=== PATIENT | male | born 1965 | race Caucasian/White ===

== ENCOUNTER 2018-05-14 13:12 | Emergency (ER) | payer OTHER ==
[~2018-05-14] VITALS: Ht 182.9 cm; Wt 97.5 kg
== END 2018-05-14 17:48 | disposition home or self-care (01) ==
LOC: ER 13:12 → CPU-OBS 13:29 → ER 13:29
DX: R07.89 Other chest pain (principal)
CPT/HCPCS: 93306; 93005; G0378; G0379